=== PATIENT | female | born 1965 | race Caucasian/White ===

== ENCOUNTER 2017-09-29 08:31 | Day surgery (SDC) | payer OTHER ==
[2017-09-29] MEDS ORDERED: PROPOFOL 10 MG/ML VIAL IV ONE (08:32)
[2017-09-29] MEDS ORDERED: LIDOCAINE 2% MDV (20MG/ML) 20ML VIAL IV ONE (08:32)
[2017-09-29] MEDS ORDERED: FENTANYL PF 100MCG/2ML VIAL IV ONE (08:32)
--- NOTE | 2017-09-30 13:50 | Operative Note ---
DATE OF SURGERY: 09/29/2017 OPERATION: ESOPHAGOGASTRODUODENOSCOPY. INDICATION: Recurring episodic right upper quadrant pain and recurring pyrosis, rule out acid peptic disease. 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 She complains of intermittent pain in the right upper quadrant. The cause is unclear. She has had previous cholecystectomy. Upper endoscopy is performed at this time for further evaluation. ANESTHESIA: Intravenous sedation was administered by the department of anesthesiology and included Diprivan titrated to effect. PROCEDURE: Following informed consent from this alert individual, including a discussion of the risks and benefits of the procedure and an opportunity for the patient to ask questions, the patient was in the left lateral decubitus position. The Olympus [id number] video endoscope was inserted into the esophagus without resistance. The proximal esophagus had a normal appearance with normal folds and distensibility. The distal esophagus demonstrated a submucosal leiomyoma essentially unchanged from prior examination. The stomach was entered and found to have multiple gastric fundal polyps. No other changes were appreciated. The antrum evaluated circumferentially was normal. The pylorus was patent. The duodenal bulb, sweep and descending duodenum were examined in a serial fashion and found to be normal. The endoscope was then withdrawn back into the body of the stomach. Retroflexion accomplished following air insufflation again revealed gastric fundal polyps but no other changes. The endoscope was then straightened and withdrawn back through the esophagus and removed from the patient. She tolerated the procedure well and was returned to the recovery area in stable condition. IMPRESSION: 1. Multiple gastric fundal polyps. 2. Distal esophageal leiomyoma noted previously and unchanged from prior examinations. RECOMMENDATION: The patient will be following with Brian Jimenez DO. The cause for her abdominal pain is unclear. As always, thank you for allowing me to participate in the care of your patient. CC: DO THEO Cannon
== END 2017-09-29 10:38 | disposition home or self-care (01) ==
LOC: HOP 08:31
PROVIDERS: ATTEND Internal Medicine Gastroenterology
DX: K31.7 Polyp of stomach and duodenum (principal); E78.00 Pure hypercholesterolemia, unspecified; J45.909 Unspecified asthma, uncomplicated
CPT/HCPCS: 43235; 00731; J3010